=== PATIENT | female | born 1995 | race Caucasian/White ===

== ENCOUNTER → 2023-01-27 | Outpatient (CLI) | payer OTHER ==
--- NOTE | 2023-02-01 11:32 | CT ---
EXAMINATION TYPE: CT angio chest DATE OF EXAM: 01/27/2023 COMPARISON: HISTORY: aortic bicuspid valve. monitor aorta. CT DLP: 560.30 mGycm, Automated exposure control for dose reduction was used. CONTRAST: Performed injected with 60ml mL of Isovue 370. TECHNIQUE: Axial images were obtained at 5 mm thick sections. Reconstructed images are reviewed on [employer] computer in the coronal plane. FINDINGS: Portion of the thyroid visualized is normal. No suspicious lung nodules or focal infiltrates are present. No enlarged mediastinal or hilar adenopathy is evident. The ascending aorta diameter at the level of the main pulmonary artery is 2.9 cm. The main pulmonary artery diameter at the bifurcation is 2.1 cm. Finding the aorta at the aortic root is 2.4 cm. Aorta mid aortic arch has a transverse dimension of 2.3 cm. Aorta at the diaphragm measures 1.6 cm. No diss ection or aneurysmal dilatation is evident. Limited CT sections are obtained through the upper abdomen. Abdomen is essentially unremarkable. IMPRESSION: 1. Normal appearance of the thoracic aorta.
== END | disposition home or self-care (01) ==
LOC: RADCTMAIN 14:19
PROVIDERS: ATTEND Internal Medicine Cardiovascular Disease
DX: Q23.1 Congenital insufficiency of aortic valve (principal)
CPT/HCPCS: 71275; Q9967

== ENCOUNTER 2023-10-21 17:45 | Outpatient (CLI) | payer OTHER ==
[2023-10-21] MEDS ORDERED: oxyCODONE-APAP 5-325MG 1 EACH TAB PO STA (18:13)
[2023-10-21 18:39] LABS: Appearance,Urine Cloudy (Clear); Bacteria,Urine Rare /hpf; Bilirubin,Urine Negative (Negative); Blood,Urine Large (Negative); Color,Urine Yellow; Glucose,Urine (UA) Negative (Negative); Ketones,Urine Negative (Negative); Leukocyte Esterase,Urine Trace (Negative); Mucus,Urine Few /hpf; Nitrite,Urine Negative (Negative); Protein,Urine Trace (Negative); RBC,Urine >182 /hpf (0-5); Specific Gravity,Urine 1.026 (1.001-1.035); Squamous Epithelial Cell,Urine 10 /hpf (0-4); Urobilinogen,Urine <2.0 mg/dL (<2.0); WBC,Urine 4 /hpf (0-5)
[2023-10-21 20:33] VITALS: BP 128/82; PULSE 86; RESP 16
--- NOTE | 2023-10-25 11:10 | P.MSEPDOC ---
Presenting Problems - Arrival Data Date of Arrival on Unit: 10/21/23 Time of Arrival on Unit: 17:45 Mode of Transport: Ambulatory - Complaint OB-Reason for Admission/Chief Complaint: Pain Comment: abd soft, non tender to touch. states pain started at 1600. sharp stabbing pain. lt flank radiating to front lower abd. hx of kidney stones. feels like kidney stones but never got when preg. s.o. at bedside. denies leaking fluid. bleeding, intercourse last night. no heavy lifting or strenious exercises Medical History - Information : 3 Para: 2 Term: 2 : 0 Abortions: Spontaneous or Elective: 0 Number of Living Children: 2 - Gestational Age Gestational Age by JADON (wks/days): 24 Weeks and 1 Days Review of Systems - Review of Systems Constitutional: No problems Breast: No problems ENT: No problems Cardiovascular: No problems Respiratory: No problems Gastrointestinal: No problems Genitourinary: No problems Musculoskeletal: No problems Neurological: No problems Skin: No problems Vital Signs - Pulse Pulse Oximetery Pulse Rate: 86 Pulse Assessment Method: Pulse Oximetry - Respirations Respiratory Rate: 16 Oxygen Delivery Method: Room Air O2 Sat by Pulse Oximetry: 97 - Blood Pressure Right Arm Blood Pressure: 128/82 Blood Pressure Mean: 97 Blood Pressure Source: Automatic Cuff Physician Notification - Physician Notified Physician Notified Date: 10/21/23 Physician Notified Time: 18:05 Physician: Kori Noriega New Order Received: Yes - Notification Comment Comment: Report given, order recieved for oral hydration and oxy 5 for pain. UA to be sent per lisa Bowens RN. Per Lisa Bowens RN in handoff report, UA results reviewed with Dr. Noriega. Pt to be d/c home with increased oral hydration and to strain urine. PT to stop by [facility] office tomorrow for pain med prescription. Maternal Triage Index - Maternal Triage Index Presenting for scheduled procedure w/no complaint: No - Stat/Priority 1 Stat Priority 1: No - Urgent/Priority 2 Urgent Priority 2: No - Prompt/Priority 3 Prompt Priority 3: No - Non-Urgent/Priority 4 Non-Urgent Priority 4: Yes Criteria Met for Priority 4: abd soft, non tender to touch. states pain started at 1600. sharp stabbing pain. lt flank radiating to front lower abd. hx of kidney stones. feels like kidney stones but never got when preg. s.o. at bedside. denies leaking fluid. bleeding, intercourse last night. no heavy lifting or strenious exercises Disposition - Disposition OB Disposition: Discharge to home Discharge Date: 10/21/23 Discharge Time: 19:34 I agree with the RN Medical Screening Exam: Yes Case reviewed; plan agreed upon as documented in EMR&OBIX.: Yes Diagnosis: PAIN, UNSPECIFIED
== END 2023-10-21 19:34 | disposition home or self-care (01) ==
LOC: FBPOP 17:45
PROVIDERS: ATTEND Obstetrics & Gynecology
CPT/HCPCS: 81001; 99213

== ENCOUNTER 2024-02-06 05:35 | Inpatient (IN) | payer MEDICAID ==
[2024-02-06] MEDS ORDERED: OXYTOCIN 10 UNIT/ML 1 ML VIAL IM PRN (05:54)
[2024-02-06] MEDS ORDERED: CARBOPROST TROMETHAMINE 250 MCG/ML 1 ML AMP IM PRN (05:54)
[2024-02-06] MEDS ORDERED: miSOPROStoL 200 MCG TAB PO PRN (05:54)
[2024-02-06] MEDS ORDERED: TERBUTALINE 1 MG/ML VIAL SQ PRN (05:54)
[2024-02-06] MEDS ORDERED: LIDOCAINE 0.5% (PF) 5 MG/ML (50 ML SDV) SQ PRN (05:54)
[2024-02-06] MEDS ORDERED: TRANEXAMIC 1,000 MG/100ML-NACL 1,000 MG in EMPTY BAG 1 BAG IV PRN (05:54)
[2024-02-06] MEDS ORDERED: miSOPROStoL 200 MCG TAB RECTAL PRN (05:54)
[2024-02-06] MEDS ORDERED: METHYLERGONOVINE 0.2 MG/ML 1 ML AMP IM PRN (05:54)
[2024-02-06] MEDS: LACTATED RINGERS 1,000 ML IV SCH ×2 (06:08→07:06)
[2024-02-06 06:12] LABS: Basophils % (A) 0 %; Eosinophils # (A) 0.2 k/uL (0-0.7); Eosinophils % (A) 2 %; HCT 28.9 % (34.0-46.0); HGB 9.6 gm/dL (11.4-16.0); Hypochromasia Slight; Lymphocytes # (A) 2.4 k/uL (1.0-4.8); Lymphocytes % (A) 26 %; MCH 27.1 pg (25.0-35.0); MCHC 33.2 g/dL (31.0-37.0); MCV 81.7 fL (80.0-100.0); Mean Platelet Volume 11.6; Monocytes # (A) 0.3 k/uL (0-1.0); Monocytes % (A) 3 %; Neutrophils # (A) 6.1 k/uL (1.3-7.7); Neutrophils % (A) 66 %; Platelet Count 169 k/uL (150-450); RBC 3.53 m/uL (3.80-5.40); RDW 14.6 % (11.5-15.5); WBC 9.2 k/uL (3.8-10.6)
--- NOTE | 2024-02-06 06:56 | P.HPOB ---
History of Present Illness H&P Date: 02/06/24 Chief Complaint: Contractions Ms. Almazan is a 28 year old at 39 weeks and 4 days with EDC of 02/09/24 by LMP consistent with a 9 week US. The fetus is estimated to be 9 pounds (95%ile) based on a 38 week growth US. Polyhydramnios was also noted on this US with JOSEFINA of 27. Her has been complicated by maternal bicuspid aortic valve for which she has followed with MFM and Cardiology. She has had ECHOs each trimester, which have been stable. Obstetric history: 2 full-term vaginal deliveries, no complications work-up: Blood type B positive, antibody screen negative, rubella immune, HBsAg negative, HIV negative, HCV negative, gonorrhea negative, chl amydia negative, 1 hour GTT, GBS negative. s/p TDap. 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, mitrial aortic stenosis with this History of Any Multi-Drug Resistant Organisms: None Reported Past Surgical History: No Surgical Hx Reported Additional Past Surgical History / Comment(s): wrist surg, and gum surgery Past Anesthesia/Blood Transfusion Reactions: No Reported Reaction Past Psychological History: No Psychological Hx Reported Smoking Status: Never smoker Past Drug Use History: None Reported Medications and Allergies Home Medications Medication Instructions Recorded Confirmed Type Calcium Carbonate [Tums] 500 mg PO QID 10/21/23 10/21/23 History Vit No.179/Iron/Folic 1 tab PO DAILY 10/21/23 10/21/23 History [ Tablet] Omeprazole 20 mg PO 02/06/24 History Allergies Allergy/AdvReac Type Severity Reaction Status Date / Time Penicillins Allergy Rash/Hives Verified 02/06/24 05:39 Exam Vital Signs Temp Pulse Resp BP Pulse Ox 02/06/24 05:38 97.1 F L 88 18 140/86 97 Intake and Output 02/05/24 02/05/24 02/06/24 14:59 22:59 06:59 Other: Weight 87.997 kg Focused physical exam is performed. This is a healthy-appearing in no apparent distress. Breathing is non-labored. Abdomen is gravid and non-tender. Cervical exam is 8/100/-1. Extremities non-tender and non-edematous. heart tones are Category I and tocometer is graphing contractions every 2-4 minutes. Results Result Diagrams: 02/06/24 06:00 Abnormal Lab Results - Last 24 Hours (Table) 02/06/24 Range/Units 06:00 RBC 3.53 L (3.80-5.40) m/uL Hgb 9.6 L (11.4-16.0) gm/dL Hct 28.9 L (34.0-46.0) % Assessment and Plan Assessment: 28 year old at 39 weeks and 4 days presenting in active labor Plan: Admit, expectant management, epidural prn, continuous EFM and tocometer, anticipate vaginal delivery
[2024-02-06] MEDS ORDERED: SODIUM CHLORIDE 0.9% 250 ML BAG ONE (06:58)
[2024-02-06] MEDS ORDERED: ROPIVACAINE 5 MG/ML 30 ML VIAL ONE (06:58)
[2024-02-06] MEDS ORDERED: fentaNYL (PF) 50 MCG/ML 5 ML AMP ONE (06:58)
[2024-02-06] MEDS: OXYTOCIN 30 UNITS/500 ML NS 30 UNIT in SALINE 1 500ML.BAG IV SCH (09:49)
--- NOTE | 2024-02-06 10:05 | P.PROBDLV ---
Vaginal Delivery Note - . Vaginal Delivery Note: DATE OF SERVICE: 02/06/2024 PROCEDURE: Vaginal Delivery ATTENDING: Dr. Randi Alex MD ESTIMATED BLOOD LOSS: 100 mL FINDINGS: VMI, Apgars 1/8. Weight 9 pounds and 1 ounce (4110 grams) PROCEDURE: Ms. Almazan is a 28 year old at 39 weeks and 4 days presenting to labor and delivery in active labor. The has been complicated by maternal bicuspid aortic valve for which she has been followed by Cardiology and MFM. For further details, please review the admitting H&P. AROM was undertaken at 742 revealing clear amniotic fluid. The patient was completely dilated at 936. She pushed effectively with category II heart tones. A viable male infant was delivered at 946 with a mild shoulder dystocia lasting approximately 1 minute during which time the posterior shoulder was delivered. The infant was placed on the maternal abdomen and bulb suctioned. Cord was clamped and cut immediately. The infant was handed off to the pediatric team. Placenta was delivered whole with gentle cord traction at 949. Oxytocin was started to facilitate uterine tone. Uterine fundus was found to be firm and below the umbilicus upon fundal massage. Thorough examination of the cervix, vagina, periurethral area, and perineum revealed no lacerations. The patient is stable and allowed to begin the bonding process.
[2024-02-06] MEDS ORDERED: ZOLPIDEM 5 MG TAB PO PRN (16:23)
[2024-02-06] MEDS ORDERED: SIMETHICONE 80 MG CHEWABLE PO PRN (16:23)
[2024-02-06] MEDS ORDERED: diphenhydrAMINE 25 MG CAP PO PRN (16:23)
[2024-02-06] MEDS ORDERED: HYDROCORTISONE 2.5% RECTAL CREAM 30 GM TUBE RECTAL PRN (16:23)
[2024-02-06] MEDS ORDERED: BENZOCAINE/MENTHOL SPRAY 1 GM/SPRAY AEROSOL TOPICAL PRN (16:23)
[2024-02-06] MEDS ORDERED: LANOLIN CREAM 1 GM TUBE TOPICAL PRN (16:23)
[2024-02-06] MEDS ORDERED: diphenhydrAMINE 50 MG CAP PO PRN (16:23)
[2024-02-06] MEDS: ACETAMINOPHEN TAB 500 MG TAB PO SCH (16:30)
[2024-02-06] MEDS: IBUPROFEN 800 MG TAB PO SCH ×2 (18:41→19:59)
[2024-02-06] MEDS: SENNOSIDES-DOCUSATE SODIUM 1 EACH TAB PO SCH (19:58)
[2024-02-07] MEDS: ACETAMINOPHEN TAB 500 MG TAB PO SCH (01:57)
[2024-02-07 07:42] LABS: Basophils % (A) 0 %; Eosinophils # (A) 0.3 k/uL (0-0.7); Eosinophils % (A) 3 %; HCT 26.8 % (34.0-46.0); Hypochromasia Moderate; Lymphocytes # (A) 3.4 k/uL (1.0-4.8); Lymphocytes % (A) 30 %; MCH 27.9 pg (25.0-35.0); MCHC 33.6 g/dL (31.0-37.0); MCV 82.9 fL (80.0-100.0); Mean Platelet Volume 11.7; Monocytes # (A) 0.5 k/uL (0-1.0); Monocytes % (A) 4 %; Neutrophils % (A) 62 %; Platelet Count 150 k/uL (150-450); RBC 3.23 m/uL (3.80-5.40); RDW 14.6 % (11.5-15.5); WBC 11.3 k/uL (3.8-10.6)
--- NOTE | 2024-02-07 08:32 | P.DS ---
Providers Date of admission: 02/06/24 05:46 Expected date of discharge: 02/07/24 Attending physician: Lizzette Locke Primary care physician: Stated None - Discharge Diagnosis(es) (1) Term Current Visit: Yes Status: Acute (2) Active labor Current Visit: Yes Status: Acute (3) Status post vaginal delivery Current Visit: Yes Status: Acute Hospital Course: 28-year-old 3 now para 3 that presented at 39-4/7 weeks in active labor. Patient has been receiving routine care which has been essentially uncomplicated. Patient does have a known bicuspid aortic valve for which she follows with cardiology and maternal- medicine. For full details on the patient please see the dictated history and physical. Patient was admitted to labor and delivery and had a normal spontaneous vaginal delivery of a viable male infant at 946, mild shoulder dystocia lasting approximately 1 minute with delivery of posterior shoulder. Infant delivered at 946, weight of 9 pounds 1 ounces or 4110 g. No vaginal lacerations were appreciated. Patient's course has been uneventful. In this day #1 she is ambulating and voiding without difficulty. She is tolerating a regular diet without nausea or vomiting. She states her pain is well-controlled. She would like discharge home at 24 hours. Patient Condition at Discharge: Good Plan - Discharge Summary New Discharge Prescriptions: No Action Vit No.179/Iron/Folic [ Tablet] 1 tab PO DAILY Omeprazole 20 mg PO Calcium Carbonate [Tums] 500 mg PO QID Discharge Medication List Calcium Carbonate [Tums] 500 mg PO QID 10/21/23 [History] Vit No.179/Iron/Folic [ Tablet] 1 tab PO DAILY 10/21/23 [History] Omeprazole 20 mg PO 02/06/24 [History] Follow up Appointment(s)/Referral(s): Lizzette Locke DO [Doctor of Osteopathic Medicine] - 6 Weeks Patient Instructions/Handouts: Placenta Previa (ED), Vaginal Delivery (DC), Vaginal Delivery (GEN) Activity/Diet/Wound Care/Special Instructions: No tub baths or intercourse until 6 weeks . [id number]-[id number] ibuprofen 600 mg or 3 tablets every 6 hours as needed for pain. Patient is to call the office for routine visit at 6 weeks. Should she have any concerns prior to this visit she is urged to call the office and be seen prior. Discharge Disposition: HOME SELF-CARE
[2024-02-07 08:46] VITALS: RESP 20
[2024-02-07 12:59] VITALS: BP 118/64; PULSE 82; TEMP 97.6
== END 2024-02-07 16:05 | disposition home or self-care (01) | DRG 807 ==
LOC: FBPOP 05:35 → 4FBP 05:46
PROVIDERS: ADMIT Obstetrics & Gynecology; ATTEND Obstetrics & Gynecology Obstetrics
PROC: 10E0XZZ Delivery of Products of Conception, External Approach (ICD-10-PCS; principal; 2024-02-06)
PROC: 10907ZC Drainage of Amniotic Fluid, Therapeutic from Products of Conception, Via Natural or Artificial Opening (ICD-10-PCS; 2024-02-06)
DX: O40.3XX0 Polyhydramnios, third trimester, not applicable or unspecified (principal); Z37.0 Single live birth; O66.0 Obstructed labor due to shoulder dystocia; O99.892 Other specified diseases and conditions complicating childbirth; Q23.81 Bicuspid aortic valve; Z3A.39 39 weeks gestation of pregnancy; Z79.899 Other long term (current) drug therapy; Z88.0 Allergy status to penicillin
CPT/HCPCS: 85025; 86850; 86900; 86901; 99213